=== PATIENT | male | born 1960 | race Caucasian/White ===

== ENCOUNTER 2019-08-12 09:10 | Day surgery (SDC) | payer MEDICAID ==
[~2019-08-12] VITALS: Ht 172.7 cm; Wt 88.2 kg
[2019-08-12 09:27] LABS: HEMATOCRIT 50.5 % (42.0-54.0); HEMOGLOBIN 16.5 g/dL (13.5-17.5); MCH 27.2 pg (26.0-34.0); MCHC 32.7 g/dL (31.0-37.0); MCV 83.2 fL (80.0-100.0); MEAN PLATELET VOLUME 10.7 fL (7.4-10.4); RBC 6.07 10x6/uL (4.20-6.10); RDW 14.5 % (11.5-14.5); WBC 7.8 10x3/uL (4.8-10.8)
[2019-08-12] MEDS ORDERED: NORVASC5 MG PO (09:39)
[2019-08-12] MEDS ORDERED: BRILINTA90 MG PO (09:40)
[2019-08-12] MEDS ORDERED: LOPRESSOR25 MG PO (09:40)
[2019-08-12] MEDS ORDERED: ASPIRIN81 MG PO (09:41)
[2019-08-12] MEDS ORDERED: CRESTOR10 MG PO (09:41)
[2019-08-12 09:42] VITALS: Ht 172.7 cm; Wt 88.2 kg
--- NOTE | 2019-08-12 14:29 | HP ---
PATIENT: CHEO OLSEN JR MEDICAL RECORD: [id number] ACCOUNT: [id number] LOCATION:[facility] : 64 ADMISSION DATE: 08/12/19 PCP: ZEINA BREWER DO HISTORY AND PHYSICAL EXAMINATION CHIEF COMPLAINT: Desires colonoscopy. HISTORY OF PRESENT ILLNESS: He does have a paternal history where the paternal grandfather had colon cancer. He has noticed no blood in his stools. No abdominal pain. He has been on Brilinta, but has been off of it for several days. Dr. Betancourt is his chuck boner. The risks, possible complications, and alternatives to the procedure were explained to the patient. He elects to proceed. PAST MEDICAL AND SURGICAL HISTORY: He had coronary stents times 2, gastroesophageal reflux, coronary artery disease, hypertension. SOCIAL HISTORY: Nonsmoker. HOME MEDICATIONS: Please see the nursing list. ALLERGIES: No known drug allergies. PHYSICAL EXAMINATION: GENERAL: The patient does not appear acutely ill. He does not appear chronically ill. VITAL SIGNS: Reviewed. EARS: External ears appear normal. EYES: Extraocular movements are intact. NECK: Trachea is midline. CHEST: No intercostal retractions. PULMONARY: Nonlabored, no stridor. IMPRESSION: 1. Family history of colon cancer. 2. Desires screening colonoscopy. PLAN: Colonoscopy. TRANSINT:[id number] Voice Confirmation ID: [id number] DOCUMENT ID: [id number] ESTHER NICHOLSON MD at 1429 CC: ZEINA BREWER DO and Adri BETANCOURT [id number] DICTATION DATE: 08/12/19 1356 PUBLICITY MANAGER: 08/12/19 [id number] [place] [address]
--- NOTE | 2019-08-12 15:29 | NUR ---
IV REMOVED VS STABLE AND PT GIVEN INSTRUCTIONS,
--- NOTE | 2019-08-13 14:07 | OP ---
PATIENT NAME: CHEO OLSEN JR MEDICAL RECORD: [id number] :64 LOCATION:[facility] ADMISSION DATE: SURGEON: ESTHER NICHOLSON MD DATE OF OPERATION: 08/12/2019 PREOPERATIVE DIAGNOSES: 1. Family history of colon cancer. 2. Desires screening colonoscopy. POSTOPERATIVE DIAGNOSES: 1. Family history of colon cancer. 2. Desires screening colonoscopy. 3. One colon polyp, 9 mm x 8 mm, sessile at 25 cm. PROCEDURE: 1. Total colonoscopy to cecum. 2. Hot biopsy forceps polypectomy times 1. SURGEON: Esther Nicholson MD GRADUATE STUDENT INSTRUCTOR: None. BLOOD LOSS: Minimal. ANESTHESIA: IV sedation. COMPLICATIONS: None. The risks, possible complications and alternatives to the procedure were explained to the patient. He elects to proceed. The discussion specifically included, but was not limited to, bleeding requiring emergency reoperation, infection, endoscopic perforation, and post-polypectomy bleeding. ENDOSCOPIC COURSE: The patient was conveyed to endoscopy suite electively on 08/12/2019. IV sedation was induced by the anesthesia staff. The patient was placed in the [place] position. A digital rectal examination was performed. Prostate was slightly enlarged and was symmetric and was without nodules. A colonoscope was inserted through the anus. It was easily advanced to the cecum. The prep was excellent. I slowly withdrew the endoscope. The pullback was greater than a 13-minute pullback. I dragged the folds. I irrigated and aspirated extensively. A combination of normal imaging and narrow band imaging were utilized. A retroflexed view was obtained in the rectum. I then unretroflexed the scope and removed it under direct vision. The polyp appeared to be adenomatous. If it is indeed adenomatous, I would recommend that his next surveillance colonoscopy takes place in 1 year and then every 3 years for the rest of his life. TRANSINT:[id number] Voice Confirmation ID: [id number] DOCUMENT ID: [id number] OPERATIVE REPORT [id number] PRETTYWAQAS ARNOLDESTHER CHRISTY JR, MD at 1405 CC: ZEINA BREWER DO and Adri CHU [id number] DICTATION DATE: 08/12/19 1428 SENIOR MANAGEMENT CONSULTANT: 08/12/19 2213 [facility] 08/12/[address] [id number]
== END 2019-08-12 15:30 | disposition home or self-care (01) ==
LOC: D.OPS 09:10
PROVIDERS: Anesthesiology; ATTEND Surgery
DX: Z12.11 Encounter for screening for malignant neoplasm of colon (principal); Z80.0 Family history of malignant neoplasm of digestive organs